=== PATIENT | male | born 1935 | race Caucasian/White ===

== ENCOUNTER → 2019-09-18 19:01 | Outpatient (ROUT) | payer MEDICARE, SELFPAY ==
[2019-09-18 19:12] LABS: BUN Creatinine Ratio 31.4 (6-22); Blood Urea Nitrogen 22 mg/dL (9-20); Calcium 9.6 mg/dL (8.4-10.2); Carbon Dioxide 27 mmol/L (22-32); Chloride 101 mmol/L (98-107); Estimated Glomerular Filt Rate > 60.0 mL/min (>60); Glucose 152 mg/dL (80-110); HEMOLYSIS 44 (0-50); Potassium 4.4 mmol/L (3.4-5.1); Sodium 137 mmol/L (137-145); Uric Acid 5.5 mg/dL (3.5-8.5)
== END ==
PROVIDERS: Family Provider Orthopaedic Surgery; PCP Orthopaedic Surgery; Visit Provider Internal Medicine
DX: M79.671 Pain in right foot (principal)
CPT/HCPCS: 80048; 84550

== ENCOUNTER 2021-08-07 09:31 | Emergency (ER) | payer MEDICARE, SELFPAY ==
[2021-08-07 09:47] VITALS: BP 168/88; PULSE 89; RESP 14; TEMP 36.3; O2SAT 99; BMI 33.3
--- NOTE | 2021-08-07 10:05 | ED.BACK ---
HPI - Back Pain/Injury General Chief Complaint: Back Pain/Injury Stated Complaint: Pain in left lower back Time Seen by Provider: 08/07/21 09:41 Source: patient Mode of arrival: Ambulatory Limitations: no limitations History of Present Illness HPI Narrative: Patient is an 86-year-old male who has had lower back surgeries in the past who is here for evaluation of left-sided lower back pain. He states that is been going on for the past couple days. He does take ibuprofen at home which helps the symptoms somewhat but then it returns. No urinary symptoms. No change in bowel habits. He does state that he is having some pain down his left leg. He does feel somewhat better when he leans over or rests on something. He does not remember specific time when the injury occurred. He has no skin rashes over the area. No fevers. Related Data Allergies Allergy/AdvReac Type Severity Reaction Status Date / Time No Known Drug Allergies Allergy Verified 08/07/21 09:51 Review of Systems Constitutional Constitutional: Reports system reviewed and no additional complaints, except as documented Gastrointestinal Gastrointestinal: Reports system reviewed and no additional complaints, except as documented, Denies change in bowel habits, Denies nausea and Denies vomiting Genitourinary Genitourinary: Reports system reviewed and no additional complaints, except as documented and Denies dysuria Musculoskeletal Musculoskeletal: Reports system reviewed and no additional complaints, except as documented Integumentary/Breasts Skin/Breast: Reports system reviewed and no additional complaints, except as documented Neurologic Neurologic: Reports system reviewed and no additional complaints, except as documented Hematologic/Lymphatic On Anticoagulants: No Patient History Medical History Cervical spinal stenosis History of prostate cancer Osteoarthritis Social History Smoking Status: Former smoker Smoking Status: Former smoker Substance Use Type: does not use Exam Initial Vital Signs Initial Vital Signs: Vital Signs Temperature 97.4 F L 08/07/21 09:47 Pulse Rate 89 08/07/21 09:47 Respiratory Rate 14 08/07/21 09:47 Blood Pressure 168/88 H 08/07/21 09:47 Pulse Oximetry 99 08/07/21 09:47 Const General: cooperative and comfortable HENMT Head: normal to inspection and normocephalic Resp Effort & Inspection: normal respiratory effort Auscultation: clear to auscultation bilaterally Cardio Rate: regular rate Rhythm: regular rhythm GI Inspection: normal to inspection Palpation: soft, No guarding and No tender Back/Spine/Pelvis Other: No midline lumbar spinal tenderness. He does not have any specific reproducible tenderness to palpation on his back but the location is over the posterior superior iliac spine. No tenderness over the SI joint. Skin General: no rashes or lesions noted Neuro General: patient alert, patient awake and moves all extremities Extrem General: capillary refill normal Psych Appearance: grossly normal and well kempt Course Vital Signs Vital signs: Vital Signs - 8 hr 08/07/ 09:47 Temperature 97.4 F L Pulse Rate 89 Respiratory Rate 14 Blood Pressure 168/88 H Pulse Oximetry 99 MDM - Back Pain/Injury MDM Narrative Medical decision making narrative: Patient is ambulatory. He has fairly localized tenderness over the location of the posterior superior iliac spine although it is not necessarily reproducible with palpation. Does report some tenderness along the anterior left thigh. No fevers. No urinary symptoms. No change in bowel habits. No specific trauma. No indication for radiologic studies. Given the location I do suspect musculoskeletal in origin. Patient will continue to take ibuprofen at home. We discussed return precautions. He expressed understanding. Discharge Plan Departure Patient Disposition: Home Clinical Impression: Acute low back pain Instructions: DI for Low Back Pain Activity Restrictions/Additional Instructions: I do recommend that you continue to take the ibuprofen at home as directed. Be sure that you are taking this with food has a can irritate your stomach. I would also recommend that you start taking a daily medicine called famotidine/Pepcid you can purchase this [id number]. This medicine will also help with decreasing the acidity of your stomach and help prevent and ulcers. Contact your primary doctor for a follow-up. Return to the emergency department for any new or worsening symptoms.
== END 2021-08-07 10:28 | disposition home or self-care (01) ==
PROVIDERS: Emergency Provider Emergency Medicine
DX: M54.50 Low back pain, unspecified (principal)
CPT/HCPCS: 99281

== ENCOUNTER → 2021-08-19 17:20 | Outpatient (CLI) | payer MEDICARE, SELFPAY ==
--- NOTE | 2021-08-19 17:22 | DI.MRI.S_ITS ---
PROCEDURE: MR LUMBAR SPINE WO CON INDICATIONS: LOW BACK PAIN TECHNIQUE: Noncontrast sagittal T1 spin echo and T2 fast echo, sagittal STIR, and T2 fast spin echo through the lumbar spine. In cases with scoliosis, additional coronal T2 fast spin echo may be performed. COMPARISON: None. FINDINGS: Image quality: Excellent. Alignment and Curvature: There is normal bony alignment. Bone Marrow: Degenerative endplate changes noted including Modic type 1 degenerative endplate changes at L5-S1. Spinal Cord: Conus medullaris terminates at the L1 level. Visualized cord demonstrates normal signal and size. Paraspinous Soft Tissues: No paravertebral masses. T12-L1: Normal appearance. L1-L2: Normal appearance. L2-L3: Normal appearance. L3-L4: Disc height is preserved. Circumferential disc bulge and hypertrophic facet joints combined result in mild central stenosis and effacement of both lateral recesses. There is moderate bilateral foraminal stenosis greater on the right. L4-L5: Disc space narrowing and circumferential disc bulge with hypertrophic facet joints present. There is evidence of prior left hemilaminectomy. There is persistent effacement of the left lateral recess. Mild central stenosis. Moderate right and severe left foraminal stenosis. L5-S1: Disc space narrowing with circumferential disc bulge and hypertrophic facet joints present. There has been a right hemilaminectomy previously. No central stenosis. Severe right and moderate left foraminal stenosis present. IMPRESSION: Multilevel degenerative disc disease and arthropathy in the lower cervical spine results in varying degrees of central and foraminal stenosis including severe right foraminal stenosis at L5-S1 and severe left foraminal stenosis at L4-5 Approved by: Placido Vang M.D. on 08/20/2021 at 8:50
== END ==
PROVIDERS: Referring Provider Orthopaedic Surgery Orthopaedic Surgery of the Spine; Visit Provider Orthopaedic Surgery Orthopaedic Surgery of the Spine
DX: M51.36 Other intervertebral disc degeneration, lumbar region (principal); M51.37 Other intervertebral disc degeneration, lumbosacral region; M47.816 Spondylosis without myelopathy or radiculopathy, lumbar region; M47.817 Spondylosis without myelopathy or radiculopathy, lumbosacral region; M48.061 Spinal stenosis, lumbar region without neurogenic claudication; M48.07 Spinal stenosis, lumbosacral region; M54.50 Low back pain, unspecified
CPT/HCPCS: 72148

== ENCOUNTER → 2021-10-14 11:10 | Outpatient (CLI) | payer MEDICARE, SELFPAY ==
[2021-10-14 12:08] LABS: COVID19 -Nasal RAPID Negative (Negative)
== END ==
PROVIDERS: PCP Physician Assistant Medical; Referring Provider Orthopaedic Surgery Orthopaedic Surgery of the Spine; Visit Provider Orthopaedic Surgery Orthopaedic Surgery of the Spine
DX: Z20.822 Contact with and (suspected) exposure to COVID-19 (principal)
CPT/HCPCS: 87635; C9803

== ENCOUNTER 2021-10-18 13:00 | Observation (INO) | payer MEDICARE, SELFPAY ==
[2021-10-10 09:22] VITALS: BMI 34.2
[2021-10-17] VITALS (22 sets, daily range): BP systolic 120–185; BP diastolic 42–114; PULSE 63–85; RESP 13–18; TEMP 36.2–37; O2SAT 93–99; BMI 34.2
[2021-10-17] MEDS: LACTATED RINGERS 1,000 ML 42 ML IV (12:33)
--- NOTE | 2021-10-17 13:28 | PM.PREOP ---
Pre-operative Note COVID-19 COVID-19 status: Negative Result date/Date tested (Pos, Neg/Pending): 10/16/21 Criteria for continued procedure: Expected advancement of disease process, Possibility delay results in more complex future surgery or treatment, Increased loss of function, Continuing or worsening of significant or severe pain and Deterioration of the patient's condition or overall health Interval Note History & Physical reviewed/Exam performed by Physician: Yes Changes to H&P: No
[2021-10-17] MEDS: CEFAZOLIN 2 GM/100 ML PREMIX 100 ML IV ×2 (13:49→22:06)
--- NOTE | 2021-10-17 14:21 | SUR.OPER ---
Prone on spine table, head in foam head support, padded chest and pelvic supports, gel pad at knees, lower legs supported by pillows; nipples, genitalia and toes free of pressure, arms secured on foam padded arm boards at <90 degrees abduction. Tape over blanket at thigh secured to table.
[2021-10-17] MEDS: BUPIVACAINE 0.25% (PF) 30 ML, EPINEPHrine 0.3 MG INJ (14:33)
[2021-10-17] MEDS: BUPIVACAINE LIPOSOME 266 MG/20 ML VIAL INJ (14:34)
[2021-10-17] MEDS: ACETAMINOPHEN IV 1,000 MG/100 ML VIAL 400 MG IV (14:49)
--- NOTE | 2021-10-17 16:03 | DI.RAD.S_ITS ---
PROCEDURE: XR LUMBAR SPINE 2-3V INDICATIONS: L4-5 TLIF TECHNIQUE: 2 intraoperative fluoroscopic views of the lumbar spine were acquired. COMPARISON: None. FINDINGS: Intraoperative fluoroscopic images of lower lumbar spine shows posterior fusion at L4-5 level with intervertebral spacer placement. IMPRESSION: Fluoro guidance was provided intraoperatively for posterior fusion at L4-5 level. Dictated by: Talib Alexandre M.D. on 10/17/2021 at 16:32 Approved by: Talib Alexandre M.D. on 10/17/2021 at 16:37
--- NOTE | 2021-10-17 16:15 | PM.OP.1 ---
Operative Date/Time/Diagnoses Date of procedure: 10/17/21 Time of procedure: 13:50 Pre-op diagnosis: 1. 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 Lumbar spondylosis with radiculopathy Post-op diagnosis: same Procedure & Clinicians Procedure: 1. L4-5 Postero-lateral and posterior interbody fusion 2. L4-5 interbody cage placement. 3. L4-5 decompressive laminectomy with bilateral facetecomies 4. L4-5 Posterior non-segmental instrumentation 5. [place] of bone marrow from iliac crest 6. Utilization of microsurgical technique and operating microscope Same procedure as scheduled: Yes Indications: Patient has been having chronic back pain and worsening lumbar radiculopathy. Patient failed multiple conservative management with worsening pain weakness and numbness in her lower extremity. Patient has been having difficulty performing activity of daily living. After discussing risks benefits of treatment options, patient elected proceed with surgery. Surgeon: Riri Anthony Organisation And Methods Analyst: Chantal Crook Click Yes if Unassisted: No Anesthesia Type: General Operative Notes Closure Type: primary Specimen(s): none sent Prosthetic devices, grafts, tissues, transplants, or devices: Globus revolve screws, Rise cage Estimated Blood Loss (mL): 50 Blood products transfused: none Procedure in detail: Patient was seen in the preoperative area. Risks and benefits of the surgery was discussed with the patient. Informed consent was obtained from the patient and placed in the chart. Surgical site was marked. Patient was taken to the operative room. General anesthesia was administered. Prophylactic antibiotic was given to the patient less than 30 min before the incision was made. Patient was placed into a prone position on the Brad table. Patient's back was then prepped and draped in the sterile fashion. Time-out was performed at this time. Using AP and lateral C-arm imaging the interval between L4-5 was identified and marked on patient's back. A 2 inch incision 2 in from midline was made on the right side first. The fascia was incised in line with skin incision. Globus MARS retractors was placed inside the incision and docked onto the L4 lamina. Using microsurgical technique and operating microscope, a L4 laminectomy and L4-5 facetectomy was performed using a Kerrison rongeur. The disc space at L4-5 was identified. And a total diskectomy was performed at L4-5 level. The endplates were decorticated using a rasp and shaver. The total diskectomy and decortication was performed at L4-5 level in order to to accomplish a L4-5 fusion. The local bone from the laminectomy and facetectomy was saved for local bone grafting. After the total diskectomy and decortication was completed, Trifecta bone graft material was combined with local bone that was harvested earlier. At this time, a separate skin is incision was made over the iliac crest. A Jamshidi needle was inserted into the iliac crest through a separate skin incision. 5 cc of bone marrow aspiration was obtained through the separate skin incision using a Jamshidi needle from the iliac crest. The bone marrow aspiration was combined with local bone and the Trifecta bone grafting material. The bone grafting material was placed into the L4-5 interbody space along with a expandable cage. The cage was expanded to its maximum height using the torque limiting screwdriver. At this time a mirror image incision was made on the left side. The fascia was incised in line with the skin incision. Globus MARS retractor was inserted and docked onto the L4-5 posterolateral gutter. Using the power drill, posterior-lateral decortication was performed at L4-5 level until bleeding cortical bone was identified. The remaining bone grafting material was placed into the L4-5 posterior lateral gutter he order to accomplish posterolateral fusion at the L4-5 level. Using the double C-arm technique, pedicle screws were placed into the L4-5 pedicles bilaterally. This was done by placing the Jamshidi needle into the pedicles, then placing the guidewires over the Jamshidi needle, and finally placing the cannulated screws over the guidewires bilaterally. After the pedicle screws were placed, 2 titanium rods was locked into the heads of the pedicle screws using locking caps and torque limiting screwdriver. After all the hardware was placed, and confirmed with AP and lateral C-arm imaging, the wound was then irrigated with sterile normal saline and packed with Ray-Zeferino gauze for 3 min to accomplish hemostasis. After the gauze was removed the deep fascia was closed with #1 Vicryl suture. The subcutaneous layer was closed with 2-0 Vicryl. The skin was closed with skin scotty. Patient tolerated the procedure well. There were no complications. Complications: none Post-operative Condition: stable Disposition: PACU Plan for aftercare: Admit to inpatient hospital
[2021-10-17] MEDS: MEPERIDINE 50 MG/ML INJ 12.5 MG IV (16:40)
[2021-10-17] MEDS: fentaNYL 100 MCG/2 ML INJ IV ×2 (16:51→16:56)
--- NOTE | 2021-10-17 17:15 | SUR.PHASEI ---
Addendum entered by Leonora Cuellar R.N. 10/17/21 18:38: 1820: Report given to receiving RN using SBAR with time allowed for questions. Pt A&Ox4, dressing C/D/I, denies distress, VSS. Pt transported to room by this RN bedside handoff to receiving RN. Left pt with primary RN in stable condition. Addendum entered by Leonora Cuellar R.N. 10/17/21 18:05: 1805: Pt A&Ox4, reports pain as tolerable, VSS, CMS (+) bLE, and denies any distress and ready to transfer to room. Attempt to call report to receiving RN, busy at this time, will return call when available. LOW Lea x [phone] Addendum entered by Leonora Cuellar R.N. 10/17/21 17:20: Updated son. Original Note: 1700: Handoff to LOW Wood for rest break. 1715: Returned from break.
[2021-10-17] MEDS: LABETALOL 20 MG/4 ML SYRINGE 10 MG IV (17:31)
[2021-10-17] MEDS: OXYCODONE IR 5 MG TABLET PO ×3 (17:43→23:38)
[2021-10-17] MEDS: SODIUM CHLORIDE 0.9% 1,000 ML 100 ML IV (19:30)
[2021-10-17] MEDS: ATORVASTATIN 20 MG TABLET 40 MG PO (20:28)
[2021-10-17] MEDS: DOCUSATE 100 MG CAPSULE PO (20:28)
[2021-10-17] MEDS: SENNOSIDES 8.6 MG TABLET 17.2 MG PO (20:29)
--- NOTE | 2021-10-17 21:18 | PC.NURSE ---
Addendum entered by Angelica Hughes R.N. 10/18/21 01:24: correction of previous note: Patient attempts to turn himself in bed but is not good at remembering to log roll and not twist so instructed to call for assistance when wanting to reposition Original Note: Patient is alert and oriented. Slightly T[place]ALIP. Breath sounds CTA with RA sat of 93%; on continuous oximetry. HRR. Denies nausea and ate sandwiches and japanese fries. BT present and states he has passed a little flatus. Voided prior to arrival on floor; denies dysuria, frequency or urgency. Is able to move himself in bed. Gait not assessed at this time as only back from PACU at 1830. Dressing to back intact with small area of shadow drainage noted and outlined. Noted to have bruised area to right of dressing; outlined. CMS is intact bilaterally but does have chronic tingling/numbness in right hand which is unchanged. Bilateral foot SCD's applied. Complained of 2-3/10 pain and was medicated with oxycodone. Fall risk score is high and bed alarm is activated.
[2021-10-17] MEDS: hydrOXYzine pamoate 25 MG CAPSULE PO (22:09)
[2021-10-18] VITALS (8 sets, daily range): BP systolic 109–129; BP diastolic 35–68; PULSE 56–72; RESP 17–18; TEMP 36.6–37.4; O2SAT 93–97
[2021-10-18] MEDS: HYDROMORPHONE 0.5 MG INJ IV ×3 (01:07→07:41)
[2021-10-18] MEDS: CEFAZOLIN 2 GM/100 ML PREMIX 100 ML IV (05:35)
[2021-10-18] MEDS: OXYCODONE IR 5 MG TABLET PO ×5 (06:25→21:36)
[2021-10-18] MEDS: SODIUM CHLORIDE 0.9% 1,000 ML 100 ML IV ×2 (06:28→20:50)
--- NOTE | 2021-10-18 06:54 | P.PN_ITS ---
Subjective Subjective Date Patient Seen: 10/18/21 Time Patient Seen: 06:54 Interval history: Lying in bed on his left side. C/o back pain, denies leg pain; 'It's already feeling better than before surgery!' Has not been OOB. No trouble urinating or eating. He will have help at home from his son, but his son will be out of town from 10/21 through 10/24, so depending on progress w/ PT/OT, pt may require SNF for a brief period of time. Exam Vital Signs (past 8 hours): - 10/18/21 00:00 10/18/21 00:00 10/18/21 04:00 Temperature 98.1 F 98.2 F Pulse Rate 63 63 Respiratory Rate 18 18 Blood Pressure 120/52 L 129/53 L Pulse Oximetry 96 97 Oxygen Flow Rate 0 Oxygen Delivery Method Room Air Oxygen Flow Rate 0 Narrative Exam Narrative: 5/5 strength in hip flexors, quadriceps, hamstrings, DF, PF, EHL bilaterally. Sensation to light touch intact in BLE. Calves soft, compressible, nontender and without palpable cords or masses. Incisional dressing placed intraoperativ barby saturated with blood and changed at bedside; no active bleeding appreciated. There is hematoma formation lateral to the right incision. [facility] Medical History Cervical spinal stenosis COPD (chronic obstructive pulmonary disease) Hearing impaired History of prostate cancer HLD (hyperlipidemia) HTN (hypertension) Myocardial infarction Osteoarthritis Pre-diabetes Prostate cancer Sciatica Surgical History (Updated 10/18/21 @ 06:59 by Chantal Crook PA-C) H/O vasectomy History of right cataract extraction Hx of cervical spine surgery Hx of cholecystectomy Hx of heart artery stent Hx of laminectomy Hx of laminectomy Hx of prostatectomy Hx of tonsillectomy S/P cervical spinal fusion Social History household members: none Smoking Status: Former smoker alcohol intake: former Assessment & Plan Post-op Assessment and plan (1) S/P lumbar fusion: Assessment and Plan narrative: PT/OT today. Disposition based on their assessment over the next 1-2 days. If pt is not able to care for himself independently at time of discharge, he will need HH or SNF at least until 10/24 due to lack of help at home. Postoperative Procedures: Procedures Operation Date: 10/17/21 13:45 Actual Procedure Side Surgeon p L4-5 TLIF Riri Anthony MD Postoperative day: 1 Quality VTE Deep Vein Thrombosis/Pulmonary Embolism Present on Admission: No
[2021-10-18] MEDS: MULTIVITAMIN 1 TABLET 1 TAB PO (09:05)
[2021-10-18] MEDS: DOCUSATE 100 MG CAPSULE PO ×2 (09:05→20:51)
--- NOTE | 2021-10-18 09:55 | PT.IIE ---
Current Diagnoses Foot drop, left foot (10/17/21) Spinal stenosis, lumbar region without neurogenic claudication (10/17/21) Postlaminectomy syndrome, not elsewhere classified (10/17/21) Arthrodesis status (10/17/21) Surgery Performed Operation Date: 10/17/21 13:45 Actual Procedures p L4-5 TLIF - Riri Anthony MD Surgical History (Last Reviewed 10/17/21 @ 11:58 by Jil Melchor, RN) H/O vasectomy History of right cataract extraction Hx of cervical spine surgery Hx of cholecystectomy Hx of heart artery stent Hx of laminectomy Hx of laminectomy Hx of prostatectomy Hx of tonsillectomy S/P cervical spinal fusion Medical History (Last Reviewed 10/17/21 @ 11:58 by Jil Melchor, RN) Cervical spinal stenosis COPD (chronic obstructive pulmonary disease) Hearing impaired History of prostate cancer HLD (hyperlipidemia) HTN (hypertension) Myocardial infarction Osteoarthritis Pre-diabetes Prostate cancer Sciatica Physical Therapy Inpatient Evaluation/Re-Eval M1 PT/OT-IP Prior Functional Status Start: 10/18/21 12:25 Freq: NEEDED Status: Active Protocol: Document 10/18/21 09:55 AB (Rec: 10/18/21 12:44 AB [id number]) Medical Review Prior Functional Status Medical History Reviewed Yes Communication able to make needs known; with memory issues Mobility and Gait pt stated taht he is independent with all mobilities without AD Social History Household Members none Living Arrangements House Number of Floors (Floors) Two Floors Number of Stairs To Enter/Railing? pt stays on main level of the house no steps to enter Home Environment Standard Height Toilet,Walk in Shower Home Equipment Front Wheel Walker,Straight Cane M2 PT-IP Current Condition Start: 10/18/21 12:25 Freq: NEEDED Status: Active Protocol: Document 10/18/21 09:55 AB (Rec: 10/18/21 12:44 AB [id number]) Physical Therapy Current Condition Current Condition Evaluation Date 10/18/21 Treatment Diagnosis s/p L4-5 TLIF; difficulty in walking Onset Date 10/17/21 M3 PT-IP Subjective Start: 10/18/21 12:25 Freq: NEEDED Status: Active Protocol: Document 10/18/21 09:55 AB (Rec: 10/18/21 12:44 AB [id number]) Subjective Physical Therapy Visit Type Type Initial Evaluation Visit Start Time 09:55 Visit Stop Time 10:31 Total Visit Minutes 36 Number of DOWEL SANDER OPERATOR Visits 0 Physical Therapy Visit Comments Patient Comments agreeable to do PT Therapy Pain Assessment Pain When Pain Assessed At Rest Pain Present Pain Present Pain Reported Location Back Intensity 5 Pain Management Techniques Distraction,Modification of Treatment,Re-positioning, Timing of Activity with Medications M4 PT-IP Mobility and Gait Start: 10/18/21 12:25 Freq: NEEDED Status: Active Protocol: Document 10/18/21 09:55 AB (Rec: 10/18/21 12:44 [id number]) PT-Bed Mobility Assessment Rolling Type of Rolling Log Rolling Level of Assist Moderate Assistance Supine to Sit Supine to Sit Moderate Assistance Sit to Supine Sit to Supine Moderate Assistance PT-Transfer Assessment Sit to and From Stand Sit to and from Stand Moderate Assistance,Maximum Assistance,1 Person Assistance ,Use of Upper Extremities Equipment Transfer Assistive Device Gait Belt,Front Wheeled Walker Orthotic/Prosthetic Devices or Brace: No Transfers Transfer Destination Toilet Transfer Technique ambulated Transfer Ability Level of Assist Moderate Assistance,Maximum Assistance,1 Person Assistance ,Use of Upper Extremities Comments Mobility Comments educated pt on back precautions and safety. pt can be impulsive. pt requires cues to recall back precautions. completed supine to sit log roll mod A and max cues. able to sit on EOB SBA. completed sit to stand mod to max a and max cues. cues for safety and techniques provided. pt requested to use the toilet and ambulated to the toilet using FWW ~ 15 ft mod to max A and max cued. presents with unsteady narrow RICARDO with increase B knee flexion during standing R>L and cues for quads activation and steadiness. pt tends to have walker too far forward. completed stand to sit using grab bar to the toilet mod to max A for controlled descent. completed sit to stand mod to max A using grab bar. required assistance with hygiene care. ambulated to the chair using fWW mod to max A and max cues. encouraged pt to sit up on the chair but pt refused. completed sit to stand from the chair mod to max A and max cues and ambulated to EOB ~ 12 ft mod to max A. completed sit to supine mod A and max cues. positioned pt in bed. call light and table placed within reach. Gait Assessment Gait Gait Assistance Required: Moderate Assistance,Maximum Assistance Distance (Feet) 15 Able to Maintain Weight Bearing Status Yes During Gait Assistive Devices Assistive Device Gait Belt,Front Wheeled Walker Orthotic/Prosthetic Devices or Brace: No Gait Deviations General Gait Pattern Antalgic,Decreased Stride Length,Decreased Feet Clearance,Step-to Gait Factors Limiting Gait Function Factors Limiting Gait Function Decreased Activity Tolerance, Decreased Strength,Difficulty Following Directions,Limited Range of Motion,Pain,Poor Balance,Poor Safety Awareness PT-Balance Assessment Sitting Balance and Reactions Static Sitting Balance Ability Good Dynamic Sitting Balance Ability Good Standing Balance and Reactions Static Standing Balance Ability Fair Dynamic Standing Balance Ability Poor Device Used FWW M5 PT-IP Objective Assessments Start: 10/18/21 12:25 Freq: NEEDED Status: Active Protocol: Document 10/18/21 09:55 AB (Rec: 10/18/21 12:44 AB [id number]) Orientation Orientation/Cognition Level of Alertness Alert Orientation Name,Place,Situation Language Function Ability Hard of Hearing Safety Awareness Decreased Safety Awareness Memory Description Short Term Impaired,Senior Living Impaired Comments with memory issues Gross Range of Motion Lower Extremity ROM Assessment Within Functional Limits Strength Lower Extremity Strength Assessment Bilaterally Impaired Comments Strength Comments LLE: 4-/5 RLE: 3+/5 Coordination Assessment Gross Coordination Gross Coordination WNL Muscle Tone Muscle Tone WNL Yes M6 PT-IP Treatment Start: 10/18/21 12:25 Freq: NEEDED Status: Active Protocol: Document 10/18/21 09:55 AB (Rec: 10/18/21 12:44 AB [id number]) Physical Therapy Treatment Education Education Provided Precautions,Weight Bearing Status,Post-Op Packet,Safety M7 PT-IP Assessment and Plan Start: 10/18/21 12:25 Freq: NEEDED Status: Active Protocol: Document 10/18/21 09:55 AB (Rec: 10/18/21 12:44 AB [id number]) PT Summary Assessment and Plan Potential Rehabilitation Potential Fair Status of Condition at Evaluation Evolving Summary Impairments Pain,ROM,Strength,Balance, Coordination,Sensation,Tone, Cognition,Bed Mobility, Transfers,Gait,Activity Tolerance Assessment Summary pt requiring mod to max A with mobility using FWW and has decrease activity tolerance and decrease safety awareness needing max A for all tasks. pt is impulsive and needs cues for back precautions and safety. pt will not have any assistance at home. pt will require SNF rehab at this time . will continue to assess progress. Goals Bed Mobility Goal Standby Assistance Transfer Goal Standby Assistance,Front Wheeled Walker Gait Goal Standby Assistance,Front Wheel Walker Gait Distance 150 Days to Meet Goals 10 Frequency of Treatment Frequency Of Treatment Twice a Day Treatment Plan Physical Therapy Treatment Plan Bed Mobility Training,Transfer Training,Gait Training, Therapeutic Exercise,Balance Retraining,Post Op Education, Discharge Planning,Hot or Cold Pack,Neuromuscular Re-ed, Coordination Retraining,Manual Therapy Precautions Lumbar Precautions Log Roll,No Twisting,Limit Bending,Lifting Restriction of 10 lbs,Gait Belt above Incisional Area Recommendations To Nursing Amount of Assist Needed 1 Person Assist Discharge Recommendations PT Discharge Recommendations SNF Rehab Transportation Needs at Discharge Wheelchair/Cabulance
[2021-10-18] MEDS: SODIUM CHLORIDE 0.9% FLUSH 10 ML IV ×2 (10:56→20:52)
[2021-10-18] MEDS: ACETAMINOPHEN 325 MG TABLET 650 MG PO ×2 (11:29→18:25)
--- NOTE | 2021-10-18 12:31 | CM.DANOTE ---
Addendum entered by PADMA Turner 10/18/21 15:05: ADD: Return call from [facility] that they can accept and initiated auth and received SNF auth from [facility] quickly but since they are not officially contracted with [facility] then shows a copay of $225 a day. SW called [facility] who is reviewing but currently no beds available for a few days and likely could not accept in timely manner. [facility] no beds until 10/22 at the earliest. [facility] is full and no beds available for this week. SW called [facility] and they are contracted and willing to review and BRENDAN Graham kindly faxed referral. ALIDA met bedside with pt and updated on above and pt is considering paying the co-pay to stay local in [place] vs [facility] on [address] if they accept pt. SW updated Claudia at [facility] and if [facility] cannot accept then they may be able to overturn the co-pay requirement without local accepting contracted SNF. BF Original Note: Patient is an 86 yo male who was admitted on 10/17/21 for planned TLIF. Pt has [facility] MCR for insurance and his PCP is Randa Trivedi. EMR was reviewed. Per Ortho, pt with hx of 2 cervical surgeries and 3 lumbar surgeries and to work with PT/OT today to determine d/c needs. Per PT, pt limited in his ability to complete bed mobility and ambulation and may require SNF pending progress and pt is agreeable to SNF if needed. OT ordered and pending. SW met bedside with pt and explained role and pt confirms he lives in [place] alone but has local supportive son who plans to assist at d/c but only for a few days as son has plans to be out of town for a long weekend and pt cannot identify any other friend or local support that he would reach out to for assist if needed. Pt confirms he has had multiple surgeries in the past and has been able to d/c home without need for HH or SNF. Pt confirms he feels he likely needs more assist after this surgery and SW explained the need to get [employer] to auth SNF for a planned surgery and this could be a barrier and discussed HH and SNF. SW provided SNF Choice list and pt agreeable with referral to any [employer] contracted SNF to see if he can be accepted and then if insurance will auth or pt will have to d/c home with son and HH. BRENDAN Graham kindly made SNF referral to [facility] and [facility]. PASRR completed in anticipation of SNF. SW printed off pt's COVID vax status off [facility] and may need COVID booster pending SNF facility requirements and ability to quarantine. Plan: SW to follow for SNF reviews and to determine if pt's insurance will auth SNF vs return home with son assist for a few days and HH. PADMA Turner Discharge Planning/Care Management CM Discharge Assessment Start: 10/18/21 12:28 Freq: Status: Active Protocol: Document 10/18/21 12:28 BF (Rec: 10/18/21 12:30 [id number]) Discharge Planning Assessment Assigned Striper Machine PADMA Lowery DPOA/Assigned Designee Name dharmesh Dorsey Contact Information [phone] Advance Directives? No Advance Directives on File No History Provided By Patient,Medical Record Has Patient been admitted in last 30 No days? Prior Living Arrangements House Household Members none Type of transporation used prior to Drives own vehicle admit Independent with ADL's Yes Is patient alert and oriented? Yes Needs Assistance With Home Chores / Shopping Caregiver for Another No Community Services used prior to Physical Therapy admission: DME Already Rented / Owned Bath Bench,FWW / Walker Patient/Family Preference Nursing Home Facility Barriers to [facility]charge Yes Comment [facility] for [facility] TL[facility] Discharge Plan Nursing Home Facility Transportation Arrangement facility van if SNF vs son if home Referrals Initiated Nursing Home If patient plan is SNF: Has PASSR been Yes completed? Medicare Choice List Provided Yes SNF/HH Preference Any [employer] contracted SNF that can accept Has Agency SNF been contacted Yes Whiteboard Updated in Patient Room with Yes name and ext. # of Striper Machine Review Status In Process Please Provide Date Initial DC 10/18/21 Assessment Was Performed Next Review Type Continued Stay Review Pre-Anesthesia Assessment Start: 10/10/21 09:22 Freq: Status: Complete Protocol: Document 10/10/21 09:22 CAB (Rec: 10/10/21 10:49 CAB [id number]) Pre-Anesthesia Assessment Patient Information Reviewed Via Phone Assessment Assessment Completed With Patient Diagnostic Results BMP/CMP,CBC,EKG Comment Outside labs/ECG scanned, COVID screen @ 10/14/21 Primary Care Provider Charan Seen Specialist in Last 12 Months Yes Specialist Seen Orthopedist Primary Language Bengali Drop Wire Aliner Required No Height 177.8 cm Weight 108.409 kg Body Mass Index (BMI) 34.2 Hearing Ability Hard of Hearing Visual Assist Glasses Dentition Type Teeth, Natural Present,Full- Upper Barriers to Learning Memory Hx Anesthesia Reactions No Hx Family Anesthesia Reaction No Hx Malignant Hyperthermia No Hx Blood Transfusions No Anesthesia Review Requested No alcohol intake former Alcohol Intake Frequency Other: Quit 15 years ago Smoking Status Former smoker how long ago did patient quit smoking Quit approx 12 years ago Substance Use Type does not use Musculoskeletal Symptoms Abnormal Gait,Back Pain, Difficulty Walking,Numbness, Radiating Pain into Limb, Tingling History of Falling (Recent or History of No ) Patient is completely paralyzed or No completely immobile Mental Status Oriented to own ability Is patient on oxygen? No Does patient have PEREYRA/SOB Yes: not really bad hx COPD Hx Sleep Apnea No Currently Taking a Beta [place] No Can You Climb a Flight of Stairs Without No SOB Hx SOB Yes: not really bad hx COPD Anti-Coagulant Therapy Yes: ASA 81mg-advised pt to check w/PCP on whether to hold or continue Has a Sweat Box Attendant No: No longer follows with cardiology Cardiac Testing No Hx Pacemaker/ICD No Pacemaker Rep Required? No Diet Type At Home Regular dysphagia No Gastrointestinal Symptoms Constipation Genitourinary Symptoms Dribbling Bladder Pattern Urgency Urinary Catheter Present No Hx Urinary Self Catheterization No HgbA1C 6.3 Date 09/03/21 Hx Drug Resistant Organism No Presence of External or Internal Medical Yes: Cardiac stent, eye IOL, Devices neck fusion Received a COVID vaccine? Yes Received all doses? Yes Marital Status Single Lives With none Prior Living Arrangements House Number of Floors (Floors) Two Floors Support System Child/Children Does the Patient Have Assistance After Yes: He states he can call his Surgery son for assistance Patient Discharge Plan Description Return Home Comment Pt not advised on length of stay per surgeon Feels Safe in Current Environment Yes Been Physically Hurt or Threatened By a No Person in Current Environment Do you have thoughts of harming yourself None or others? Are you currently considering suicide? No Do you have a plan to hurt yourself or No Plan others? Do You Have Any Spiritual Beliefs That No May Affect Your HC Choices? Do You Have Any Cultural Practices That No May Affect Your HC Choices? Comment Richard Who Can We Speak to About Patient's Care Family, friends Identifying Code for Release of Patient Declines to issue Information Health Care Proxy/Next of Kin Willian (son) Health Care Proxy Emergency Contact Name Willian (son) Emergency Contact Advance Directives? No Power of Roll Forming Machine Operator No PAC Instructions Durable medical equipment, Medications to take/avoid, Nasal antibiotic,No ETOH/ petroleum product on skin DOS, NPO,Post-op transportation,Pre -surgical wash,Sturdy shoes/ comfortable clothes,Do not bring valuables and remove jewelry
--- NOTE | 2021-10-18 12:39 | OT.IP.EVAL ---
Current Diagnoses Foot drop, left foot (10/17/21) Spinal stenosis, lumbar region without neurogenic claudication (10/17/21) Postlaminectomy syndrome, not elsewhere classified (10/17/21) Arthrodesis status (10/17/21) Surgery Performed Operation Date: 10/17/21 13:45 Actual Procedures p L4-5 TLIF - Riri Anthony MD Past Medical History (Last Reviewed 10/17/21 @ 11:58 by Jil Melchor, RN) Cervical spinal stenosis COPD (chronic obstructive pulmonary disease) Hearing impaired History of prostate cancer HLD (hyperlipidemia) HTN (hypertension) Myocardial infarction Osteoarthritis Pre-diabetes Prostate cancer Sciatica Surgical History (Last Reviewed 10/17/21 @ 11:58 by Jil Melchor, RN) H/O vasectomy History of right cataract extraction Hx of cervical spine surgery Hx of cholecystectomy Hx of heart artery stent Hx of laminectomy Hx of laminectomy Hx of prostatectomy Hx of tonsillectomy S/P cervical spinal fusion Occupational Therapy Inpatient Evaluation/Re-Eval M1 PT/OT-IP Prior Functional Status Start: 10/18/21 12:25 Freq: NEEDED Status: Active Protocol: Document 10/18/21 12:45 [facility] (Rec: 10/18/21 13:07 [facility] [id number]) Medical Review Prior Functional Status Medical History Reviewed Yes Communication able to make needs known; with memory issues Mobility and Gait pt stated that he is independent with all mobilities without AD Pt states could only walk one block and then the pain would limit him from moving more. Activities of Daily Living and IADL's Pt states able to do his ADL's and IADL needs with no issues . Social History Household Members none Living Arrangements House Number of Floors (Floors) Two Floors Number of Stairs To Enter/Railing? no step to enter Home Environment Standard Height Toilet,Walk in Shower Home Equipment Front Wheel Walker,Straight Cane Additional Social History Comment Pt has a counter on the right he uses to help stand up. Pt lives in the bottom floor on his house and rents out the top floor to a couple with 3 young kids. M2 OT-IP Current Condition Start: 10/18/21 12:45 Freq: Status: Active Protocol: Document 10/18/21 12:45 [facility] (Rec: 10/18/21 13:07 [facility] [id number]) Occupational Therapy Current Condition Current Condition Evaluation Date 10/18/21 Treatment Diagnosis S/p L4-5 TLIF Diagnosis Onset Date 10/17/21 Post Operative Precautions Lumbar Precautions Log Roll,No Twisting,Limit Bending,Lifting Restriction of 10 lbs,Gait Belt above Incisional Area M3 OT- IP Subjective and Pain Start: 10/18/21 12:45 Freq: Status: Active Protocol: Document 10/18/21 12:45 [facility] (Rec: 10/18/21 13:07 [facility] [id number]) OT- Subjective Occupational Therapy Visit Type Type Initial Evaluation Visit Start Time 11:53 Visit Stop Time 12:39 Total Visit Minutes 46 Occupational Therapy Visit Comments Patient Comments Pt agreed to work with OT. Noted right hand swollen and warm, nursing notified. OT Pain Assessment Pain When Pain Assessed At Rest Pain Present Pain Present Denied Pain M4 OT- IP ADL's Start: 10/18/21 12:45 Freq: Status: Active Protocol: Document 10/18/21 12:45 [facility] (Rec: 10/18/21 13:07 [facility] [id number]) OT SGJ-[id number] General Evaluation Self-Feeding Ability Independent Areas Needing Assistance Opening Containers Comments OT Self-Feeding Comments Pt encouraged to sit upright more in bed to eat, pt refuses . Therefore able to place his soup in a cup so pt better able to drink his soup versus use of spoon. OT ADL-Grooming General Evaluation Grooming Ability Standby Assistance Areas Needing Assistance Retrieving/Set-up of Grooming Items Comments OT Grooming Comments Set-up of wash cloth so able to wash his face. OT ADL-Oral Care Comments Oral Care Comments Not performed. Pt able to put his dentures in his mouth. OT ADL-Dressing General Eval Lower Body Dressing Ability Maximum Assistance Areas Needing Assistance Socks Comments OT Dressing Comments Able to show pt LB dressing equipment for LB dressing needs and able to practice equipment. OT ADL-Toileting General Evaluation Toileting Ability Standby Assistance Comments OT Toileting Comments Set-up assist and pt able to use the urinal in bed. Pt not able to reach back appropriately to wipe at this time during trial of simulation and suggested to pt on getting a toilet paper aid or bidet, otherwise pt may need someone to assist with his hygiene needs at home. OT ADL-Bathing Comments OT Bathing Comments Pt able to sponge off his chest and face at this time. Pt agreed to try to shower tomorrow. M5 OT- IP IADL's Start: 10/18/21 12:45 Freq: Status: Active Protocol: Document 10/18/21 12:45 [facility] (Rec: 10/18/21 13:07 [facility] [id number]) OT-Instrumental Activities of Daily Living Home Safety Awareness Awareness of Need for Assistance at Home Good Awareness Meal Preparation Meal Preparation Comments At this time pt would need assist. Fleet Service Manager Fleet Service Manager Comments At this time pt would need assist. M6 OT- IP Functional Cognition Start: 10/18/21 12:45 Freq: Status: Active Protocol: Document 10/18/21 12:45 [facility] (Rec: 10/18/21 13:07 [facility] [id number]) Cognitive Factors Limiting Selfcare Function Cognitive Ability Level of Alertness Alert Patient Orientation Name,Place,Situation Attention Span Ability Capable of Focused Attention, Capable of Sustained Attention Ability to Follow Commands Able to Follow One Step Commands with Increased Time, Able to Follow One Step Commands with Repetition Safety Awareness Decreased Recall of Precautions,Decreased Ability to Apply Precautions Cognitive Comments Cognitive Assessment Comments Pt needing educations for back precautions and log rolling. Pt needing simple concrete steps to follow at this time. OT- Vision and Hearing OT- Vision Assessment Visual Acuity Glasses All The Time Visual Attentiveness WFL Occular Pursuits WFL M7 OT- IP Mobility and Balance Start: 10/18/21 12:45 Freq: Status: Active Protocol: Document 10/18/21 12:45 [facility] (Rec: 10/18/21 13:07 [facility] [id number]) OT- Bed Mobility Assessment Supine to Sit Supine to Sit Assist Moderate Assistance Sit to Supine Sit to Supine Assist Moderate Assistance OT-Transfer Assessment Sit to and From Stand Sit to and from Stand Minimal Assistance Technique Transfer Destination Bed Devices Transfer Assistive Devices Gait Belt,Front Wheeled Walker Comments Mobility Comments MODA to help get pt's trunk upright/down and legs out and into the bed. RAQUEL to stand to FWW. Pt able to take a few step side to side and a little unsteady on his feet and just wanting to be back in the bed for his lunch. OT- Balance Assessment Sitting Balance and Reactions Static Sitting Balance Ability Good Dynamic Sitting Balance Ability Fair Standing Balance and Reactions Static Standing Balance Ability Fair M8 OT- IP Objective Assessments Start: 10/18/21 12:45 Freq: Status: Active Protocol: Document 10/18/21 12:45 [facility] (Rec: 10/18/21 13:07 [facility] [id number]) OT-Muscle Tone Assessment Muscle Tone WNL Yes M9 OT- IP Assessment and Plan Start: 10/18/21 12:45 Freq: Status: Active Protocol: Document 10/18/21 12:45 [facility] (Rec: 10/18/21 13:07 [facility] [id number]) OT Summary Assessment and Plan Potential Rehabilitation Potential Good Analytic Complexity at Evaluation Low Summary OT Impairments Pain,Balance,Functional Mobility,Dressing,Toileting, Bathing,Toilet Transfers, Shower Transfers,Activity Tolerance Progress Towards Goals Slow Progress due to Pain,Slow Progress due to Medical Issues,Slow Progress due to Activity Tolerance Assessment Summary Pt low complexity and main barriers are pain, decreased dynamic balance, needing cues to incorporate his back precautions, and now needing one person assist for his ADL and mobility needs. Pt will greatly benefit from skilled rehab prior to going home. Goals Grooming Goal Independent Dressing Goal Independent Toileting Goal Independent Bathing Goal Independent Toilet Transfer Goal Independent Shower Transfer Goal Independent Days to Meet Goals 10 Frequency of Treatment Frequency Of Treatment Once a Day Treatment Plan OT Treatment Plan ADL Training,Functional Cognition Training,Functional Mobility,Patient/Family Education,Discharge Planning Discharge Recommendations OT Discharge Recommendations SNF Rehab Transportation Needs at Discharge Wheelchair/Cabulance
[2021-10-18] MEDS: MAGNESIUM HYDROXIDE 30 ML UDC PO (14:38)
--- NOTE | 2021-10-18 15:00 | CM.DPNOTE ---
Sent referral to [facility]; NORMAN & Jeannette Lowery. Gladys Grimaldo, ROLANDO Assist.
--- NOTE | 2021-10-18 15:49 | PT-IP ANOTE ---
Addendum entered and electronically signed by Eryn Guy PT 10/18/21 15:55: This is to certify that I am involved with this pt's care and with direct supervision. Original Note: checked in with pt for PT. Pt refused therapy, son present. Educated pt regarding importance of PT and informed that PT will check back in tomorrow.
--- NOTE | 2021-10-18 16:06 | PC.NURSE ---
Addendum entered by Alondra Chaves R.N. 10/18/21 16:22: Spoke to Dr. Anthony via phone, notified that pt blood pressure has been low at 09:38 bp 109/45 and heart rate 72, at 15:53 blood pressure 126/35 and heart rate 60, pt denies dizziness or lightheadedness, held AM amlodipine and metoprolol (see MAR). Dr. Anthony states ok to have held amlodpine and metoprolol, no new orders given. Original Note: 10:[address] Anthony regarding pt low blood pressure. Blood pressure 109/45, pt denies dizziness, lightheadedness.
--- NOTE | 2021-10-18 19:27 | PC.NURSE ---
CM, per Son Willian, please call him at with an update about SNF placement and d/c plan.
[2021-10-18] MEDS: SENNOSIDES 8.6 MG TABLET 17.2 MG PO (20:51)
[2021-10-18] MEDS: ATORVASTATIN 20 MG TABLET 40 MG PO (20:51)
[2021-10-18] MEDS: hydrOXYzine pamoate 25 MG CAPSULE PO (21:36)
[2021-10-19] VITALS: BP 122/63; PULSE 71; RESP 14; TEMP 36.9; O2SAT 94
[2021-10-19] MEDS: OXYCODONE IR 5 MG TABLET PO ×6 (00:13→20:15)
[2021-10-19] MEDS: ACETAMINOPHEN 325 MG TABLET 650 MG PO ×4 (00:14→20:16)
[2021-10-19] MEDS: hydrOXYzine pamoate 25 MG CAPSULE PO ×2 (04:11→10:23)
[2021-10-19 04:45] VITALS: BP 144/51; PULSE 72; RESP 18; TEMP 36.6; O2SAT 95
[2021-10-19 08:00] VITALS: BP 131/54; PULSE 61; RESP 16; TEMP 36.8; O2SAT 94
[2021-10-19] MEDS: DOCUSATE 100 MG CAPSULE PO ×2 (08:31→20:17)
[2021-10-19] MEDS: MAGNESIUM HYDROXIDE 30 ML UDC PO (08:31)
[2021-10-19 08:32] VITALS: BP 131/54; PULSE 82
[2021-10-19] MEDS: METOPROLOL ER 25 MG TABLET 12.5 MG PO (08:32)
[2021-10-19] MEDS: MULTIVITAMIN 1 TABLET 1 TAB PO (08:32)
[2021-10-19] MEDS: AMLODIPINE 5 MG TABLET 2.5 MG PO (08:33)
[2021-10-19] MEDS: SODIUM CHLORIDE 0.9% FLUSH 10 ML IV (08:38)
--- NOTE | 2021-10-19 08:38 | P.PN_ITS ---
Subjective Subjective Date Patient Seen: 10/19/21 Time Patient Seen: 08:38 Interval history: Sitting up in bed, about to eat breakfast. C/o constipation, requests MOM. Urinating with some difficulty, but he says that is normal for him. Denies N/V. Pain 05/12. Did not participate w/ PT yesterday afternoon d/t mild pain; reassured him that some pain is normal and that he does need to work w/ PT. Exam Vital Signs (past 8 hours): - 10/19/21 04:45 10/19/21 08:32 10/19/21 08:00 Temperature 97.8 F 98.2 F Pulse Rate 72 82 61 Respiratory Rate 18 16 Blood Pressure 144/51 H 131/54 L 131/54 L Pulse Oximetry 95 94 Oxygen Flow Rate 0 0 Oxygen Delivery Method Room Air Oxygen Flow Rate 0 Narrative Exam Narrative: 5/5 strength in hip flexors, quadriceps, hamstrings, DF, PF, EHL bilaterally. Sensation to light touch intact in BLE. Calves soft, compressible, nontender and without palpable cords or masses. Low back dressing placed yesterday is CDI. [facility] Medical History Cervical spinal stenosis COPD (chronic obstructive pulmonary disease) Hearing impaired History of prostate cancer HLD (hyperlipidemia) HTN (hypertension) Myocardial infarction Osteoarthritis Pre-diabetes Prostate cancer Sciatica Surgical History (Updated 10/18/21 @ 06:59 by Chantal Crook PA-C) H/O vasectomy History of right cataract extraction Hx of cervical spine surgery Hx of cholecystectomy Hx of heart artery stent Hx of laminectomy Hx of laminectomy Hx of prostatectomy Hx of tonsillectomy S/P cervical spinal fusion Social History household members: none Smoking Status: Former smoker alcohol intake: former Assessment & Plan Assessment and plan (1) S/P lumbar fusion: Status: Acute Plan: Per CM note, likely d/c to SNF tomorrow. Covid booster ordered. Continue PT, multimodal pain management. Ordered scheduled daily MOM for pt; this should be continued on discharge. Time Spent With Patient Critical Care time: I spent a total of [] minutes of critical care time on this patient's care today; this time is exclusive of procedural time. Quality VTE Deep Vein Thrombosis/Pulmonary Embolism Present on Admission: No
--- NOTE | 2021-10-19 09:35 | OT.IP.TRT ---
Current Diagnoses Foot drop, left foot (10/17/21) Spinal stenosis, lumbar region without neurogenic claudication (10/17/21) Postlaminectomy syndrome, not elsewhere classified (10/17/21) Arthrodesis status (10/17/21) Surgery Performed Operation Date: 10/17/21 13:45 Actual Procedures p L4-5 TLIF - Riri Anthony MD Occupational Therapy Treatment Note M2 OT-IP Current Condition Start: 10/18/21 12:45 Freq: Status: Active Protocol: Document 10/18/21 12:45 [facility] (Rec: 10/18/21 13:07 [facility] [id number]) Occupational Therapy Current Condition Current Condition Evaluation Date 10/18/21 Treatment Diagnosis S/p L4-5 TLIF Diagnosis Onset Date 10/17/21 Post Operative Precautions Lumbar Precautions Log Roll,No Twisting,Limit Bending,Lifting Restriction of 10 lbs,Gait Belt above Incisional Area M3 OT- IP Subjective and Pain Start: 10/18/21 12:45 Freq: Status: Active Protocol: Document 10/19/21 10:59 [facility] (Rec: 10/19/21 11:13 [facility] [id number]) OT- Subjective Occupational Therapy Visit Type Type Treatment Note Visit Start Time 09:03 Visit Stop Time 09:35 Total Visit Minutes 32 Occupational Therapy Visit Comments Patient Comments Pt agreed to get up and try to use the bathroom and brush his teeth. Patient/Caregiver Goals To go to skilled rehab. OT Pain Assessment Pain When Pain Assessed During Mobility Pain Present Pain Present Pain Reported Location Back Intensity 3 Scale Used Numeric (0 - 10) M4 OT- IP ADL's Start: 10/18/21 12:45 Freq: Status: Active Protocol: Document 10/19/21 10:59 [facility] (Rec: 10/19/21 11:13 [facility] [id number]) OT ADL-Grooming General Evaluation Grooming Ability Standby Assistance Areas Needing Assistance Retrieving/Set-up of Grooming Items Comments OT Grooming Comments Pt states did earlier in bed. OT ADL-Oral Care General Eval Oral Care Ability Standby Assistance Areas of Assistance Retrieving/Set-Up of Items Comments Oral Care Comments Pt having to lean and hold onto the counter in order to brush his teeth. Pt not able to stand on his own due to legs partial buckling. OT ADL-Toileting General Evaluation Toileting Ability Standby Assistance,Maximum Assistance Comments OT Toileting Comments Pt able to sit on the toilet and unable to go at this time. Pt will still benefit from having assist for hygiene needs as currently not able to reach appropriately to wipe himself if having a bowel movement. OT ADL-Bathing Comments OT Bathing Comments Pt states too tired to try today. M5 OT- IP IADL's Start: 10/18/21 12:45 Freq: Status: Active Protocol: Document 10/18/21 12:45 [facility] (Rec: 10/18/21 13:07 [facility] [id number]) OT-Instrumental Activities of Daily Living Home Safety Awareness Awareness of Need for Assistance at Home Good Awareness Meal Preparation Meal Preparation Comments At this time pt would need assist. Strings Teacher Strings Teacher Comments At this time pt would need assist. M6 OT- IP Functional Cognition Start: 10/18/21 12:45 Freq: Status: Active Protocol: Document 10/19/21 10:59 [facility] (Rec: 10/19/21 11:13 [facility] [id number]) Cognitive Factors Limiting Selfcare Function Cognitive Comments Cognitive Assessment Comments Pt able to follow back precautions better today. Pt is cooperative and at times needing encouragement and concrete steps to follow. M7 OT- IP Mobility and Balance Start: 10/18/21 12:45 Freq: Status: Active Protocol: Document 10/19/21 10:59 [facility] (Rec: 10/19/21 11:13 [facility] [id number]) OT- Bed Mobility Assessment Supine to Sit Supine to Sit Assist Minimal Assistance,Moderate Assistance Sit to Supine Sit to Supine Assist Minimal Assistance OT-Transfer Assessment Sit to and From Stand Sit to and from Stand Minimal Assistance Transfers Transfer Ability Minimal Assistance Technique Transfer Destination Bed Devices Transfer Assistive Devices Gait Belt,Front Wheeled Walker Comments Mobility Comments RAQUEL/MODA for bed mobility today to help get his trunk upright and legs back into the bed. RAQUEL to stand and for balance and to guide the FWW. Pt heavy use of his BUE on the FWW to assist to walk at this time. OT- Balance Assessment Sitting Balance and Reactions Static Sitting Balance Ability Good Dynamic Sitting Balance Ability Fair Standing Balance and Reactions Static Standing Balance Ability Poor Dynamic Standing Balance Ability Poor Comments Other Balance Tests/Deviations/Treatment Pt very unsteady on his feet : and tends to walk with his knees bent and needing cues to straighten upright. M8 OT- IP Objective Assessments Start: 10/18/21 12:45 Freq: Status: Active Protocol: Document 10/18/21 12:45 [facility] (Rec: 10/18/21 13:07 [facility] [id number]) OT-Muscle Tone Assessment Muscle Tone WNL Yes M9 OT- IP Assessment and Plan Start: 10/18/21 12:45 Freq: Status: Active Protocol: Document 10/19/21 10:59 [facility] (Rec: 10/19/21 11:13 [facility] [id number]) OT Summary Assessment and Plan Potential Rehabilitation Potential Good Analytic Complexity at Evaluation Low Summary OT Impairments Pain,Balance,Functional Cognition,Functional Mobility, Dressing,Toileting,Bathing, Toilet Transfers,Shower Transfers,Activity Tolerance Progress Towards Goals Slow Progress due to Pain,Slow Progress due to Activity Tolerance Assessment Summary Pt still needing MIN/MODA for mobility needs today and heavily relies on his arms on the FWW to assist for mobility . Pt still unable to reach to wipe at this time for hygiene needs. Pt will greatly benefit from skilled rehab prior to going home. Goals Grooming Goal Independent Dressing Goal Independent Toileting Goal Independent Bathing Goal Independent Toilet Transfer Goal Independent Shower Transfer Goal Independent Days to Meet Goals 10 Frequency of Treatment Frequency Of Treatment Once a Day Treatment Plan OT Treatment Plan ADL Training,Functional Cognition Training,Functional Mobility,Patient/Family Education,Discharge Planning Other Treatment Recommendations and Next shower Treatment Focus Discharge Recommendations OT Discharge Recommendations SNF Rehab Transportation Needs at Discharge Wheelchair/Cabulance
--- NOTE | 2021-10-19 10:23 | PT.IPTN ---
Current Diagnoses Foot drop, left foot (10/17/21) Spinal stenosis, lumbar region without neurogenic claudication (10/17/21) Postlaminectomy syndrome, not elsewhere classified (10/17/21) Arthrodesis status (10/17/21) Surgery Performed Operation Date: 10/17/21 13:45 Actual Procedures p L4-5 TLIF - Riri Anthony MD Physical Therapy Treatment Note M2 PT-IP Current Condition Start: 10/18/21 12:25 Freq: NEEDED Status: Active Protocol: Document 10/18/21 09:55 AB (Rec: 10/18/21 12:44 AB [id number]) Physical Therapy Current Condition Current Condition Evaluation Date 10/18/21 Treatment Diagnosis s/p L4-5 TLIF; difficulty in walking Onset Date 10/17/21 M3 PT-IP Subjective Start: 10/18/21 12:25 Freq: NEEDED Status: Active Protocol: Document 10/19/21 10:08 KS (Rec: 10/19/21 11:38 KS [id number]) Subjective Physical Therapy Visit Type Type Treatment Note Visit Start Time 10:08 Visit Stop Time 10:23 Total Visit Minutes 15 Number of FACILITY SPECIALIST Visits 1 Physical Therapy Visit Comments Patient Comments agreeable to do PT M4 PT-IP Mobility and Gait Start: 10/18/21 12:25 Freq: NEEDED Status: Active Protocol: Document 10/19/21 10:08 KS (Rec: 10/19/21 11:38 KS [id number]) PT-Bed Mobility Assessment Rolling Type of Rolling Log Rolling Level of Assist Moderate Assistance Supine to Sit Supine to Sit Moderate Assistance,1 Person Assistance,Head of Bed Elevated Sit to Supine Sit to Supine Minimal Assistance Scooting Scooting to Edge of Bed Contact Guard Assistance PT-Transfer Assessment Sit to and From Stand Sit to and from Stand Moderate Assistance,1 Person Assistance,Use of Upper Extremities Equipment Transfer Assistive Device Gait Belt,Front Wheeled Walker Orthotic/Prosthetic Devices or Brace: No Transfers Transfer Destination Bed Transfer Technique ambulated Transfer Ability Level of Assist Moderate Assistance,1 Person Assistance,Use of Upper Extremities Comments Mobility Comments Pt in bed upon arrival and agreeable to try ambulating. Able to recall 3/3 spinal precautions. Mod A for logroll and sidelying<>Sit w/ HOB slightly elevated. Pt able to scoot EOB CGA but with difficulty and increased pain. Mod A and cues for hand placement for sit<>stand w/ FWW. Pt able to perform marching in place and then ambulated ~20 ft w/ FWW but took 2x standing rest breaks. Pt ambulated w/ flexed trunk and bilaterally flexed knees w / FWW too far in front of him and only able to minimally correct w/ cues. Pt reported fatigue and 7/10 pain and requested to go back to bed. Attempted to complete exercises while pt was seated on EOB but pt requested to lay down following ankle pumps. Min A for LE elevation into bed, pt able to complete glute sets. Left in bed w/ alarm on and all needs in reach. Gait Assessment Gait Gait Assistance Required: Minimum Assistance Distance (Feet) 20 Able to Maintain Weight Bearing Status Yes During Gait Assistive Devices Assistive Device Gait Belt,Front Wheeled Walker Orthotic/Prosthetic Devices or Brace: No Gait Deviations General Gait Pattern Antalgic,Decreased Stride Length,Decreased Feet Clearance Factors Limiting Gait Function Factors Limiting Gait Function Decreased Activity Tolerance, Decreased Strength,Difficulty Following Directions,Limited Range of Motion,Pain,Poor Balance,Poor Safety Awareness Comments Gait Comments Please refer to mobility section for details. Stair Climbing Assessment Comments Stair Climbing Comments Did not assess. PT-Balance Assessment Sitting Balance and Reactions Static Sitting Balance Ability Good Dynamic Sitting Balance Ability Good Standing Balance and Reactions Static Standing Balance Ability Fair Dynamic Standing Balance Ability Poor Device Used FWW M5 PT-IP Objective Assessments Start: 10/18/21 12:25 Freq: NEEDED Status: Active Protocol: Document 10/18/21 09:55 AB (Rec: 10/18/21 12:44 AB [id number]) Orientation Orientation/Cognition Level of Alertness Alert Orientation Name,Place,Situation Language Function Ability Hard of Hearing Safety Awareness Decreased Safety Awareness Memory Description Short Term Impaired,Jail Impaired Comments with memory issues Gross Range of Motion Lower Extremity ROM Assessment Within Functional Limits Strength Lower Extremity Strength Assessment Bilaterally Impaired Comments Strength Comments LLE: 4-/5 RLE: 3+/5 Coordination Assessment Gross Coordination Gross Coordination WNL Muscle Tone Muscle Tone WNL Yes M6 PT-IP Treatment Start: 10/18/21 12:25 Freq: NEEDED Status: Active Protocol: Document 10/19/21 10:08 KS (Rec: 10/19/21 11:38 KS [id number]) Physical Therapy Treatment Exercises Exercises Ankle Pumps,Gluteal Sets Education Education Provided Precautions,Weight Bearing Status,Post-Op Packet,Safety M7 PT-IP Assessment and Plan Start: 10/18/21 12:25 Freq: NEEDED Status: Active Protocol: Document 10/19/21 10:08 KS (Rec: 10/19/21 11:38 KS [id number]) PT Summary Assessment and Plan Potential Rehabilitation Potential Fair Summary Impairments Pain,ROM,Strength,Balance, Coordination,Sensation,Tone, Cognition,Bed Mobility, Transfers,Gait,Activity Tolerance Progress Towards Goals Slow Progress due to Pain,Slow Progress due to Activity Tolerance Assessment Summary Pt slow to progress at this time and requiring Mod A for bed mobility and Min A for ambulation w/ FWW. Pt could only tolerate 20 ft ambulation and needed 2x standing rest breaks d/t pain and fatigue. Tolerated minimal LE exercises in bed to promote blood flow and strengthening. He continues to be slightly impulsive and recalls precautions but needs cues to adhere to them. He will require SNF to improve strength and functional mobility. Will continue to assess progress. Goals Bed Mobility Goal Standby Assistance Transfer Goal Standby Assistance,Front Wheeled Walker Gait Goal Standby Assistance,Front Wheel Walker Gait Distance 150 Days to Meet Goals 10 Frequency of Treatment Frequency Of Treatment Twice a Day Treatment Plan Physical Therapy Treatment Plan Bed Mobility Training,Transfer Training,Gait Training, Therapeutic Exercise,Balance Retraining,Post Op Education, Discharge Planning,Hot or Cold Pack,Neuromuscular Re-ed, Coordination Retraining,Manual Therapy Precautions Lumbar Precautions Log Roll,No Twisting,Limit Bending,Lifting Restriction of 10 lbs,Gait Belt above Incisional Area Recommendations To Nursing Amount of Assist Needed 1 Person Assist Discharge Recommendations PT Discharge Recommendations SNF Rehab Transportation Needs at Discharge Wheelchair/Cabulance
--- NOTE | 2021-10-19 12:48 | PT.IPTN ---
Current Diagnoses Foot drop, left foot (10/17/21) Spinal stenosis, lumbar region without neurogenic claudication (10/17/21) Postlaminectomy syndrome, not elsewhere classified (10/17/21) Arthrodesis status (10/17/21) Surgery Performed Operation Date: 10/17/21 13:45 Actual Procedures p L4-5 TLIF - Riri Anthony MD Physical Therapy Treatment Note M2 PT-IP Current Condition Start: 10/18/21 12:25 Freq: NEEDED Status: Active Protocol: Document 10/18/21 09:55 AB (Rec: 10/18/21 12:44 AB [id number]) Physical Therapy Current Condition Current Condition Evaluation Date 10/18/21 Treatment Diagnosis s/p L4-5 TLIF; difficulty in walking Onset Date 10/17/21 M3 PT-IP Subjective Start: 10/18/21 12:25 Freq: NEEDED Status: Active Protocol: Document 10/19/21 12:25 KS (Rec: 10/19/21 13:20 KS [id number]) Subjective Physical Therapy Visit Type Type Treatment Note Visit Start Time 12:25 Visit Stop Time 12:48 Total Visit Minutes 23 Number of VP CLINICAL RESEARCH Visits 2 Physical Therapy Visit Comments Patient Comments agreeable to do PT M4 PT-IP Mobility and Gait Start: 10/18/21 12:25 Freq: NEEDED Status: Active Protocol: Document 10/19/21 12:25 KS (Rec: 10/19/21 13:20 KS [id number]) PT-Bed Mobility Assessment Rolling Type of Rolling Log Rolling Level of Assist Minimal Assistance Sit to Supine Sit to Supine Minimal Assistance Scooting Scooting to Edge of Bed Contact Guard Assistance PT-Transfer Assessment Sit to and From Stand Sit to and from Stand Minimal Assistance,1 Person Assistance,Use of Upper Extremities Equipment Transfer Assistive Device Gait Belt,Front Wheeled Walker Orthotic/Prosthetic Devices or Brace: No Transfers Transfer Destination Bed Transfer Technique ambulated Transfer Ability Level of Assist Minimal Assistance,Moderate Assistance,1 Person Assistance ,Use of Upper Extremities Comments Mobility Comments Pt sitting EOB upon arrival, c /o indigestion. Agreeable to PT. Pt impulsive, needing safety cues before sit<>stand. Arnel for sit<>Stand w/ FWW. Pt ambulated ~30 ft w/ FWW Min A and cues for FWW mgmt and upright posture. Pt returned to sit EOB and completed 1x10 bilateral ankle pumps and seated marches. Min A for LE assistance for sit<>sup. Pt then completed 1x10 bilateral quad sets and glute sets. Able to recall 2/3 precautions this PM (no twisting). Pt left in bed w/ alarm on and all needs in reach. Gait Assessment Gait Gait Assistance Required: Minimum Assistance Distance (Feet) 30 Able to Maintain Weight Bearing Status Yes During Gait Assistive Devices Assistive Device Gait Belt,Front Wheeled Walker Orthotic/Prosthetic Devices or Brace: No Gait Deviations General Gait Pattern Antalgic,Decreased Stride Length,Decreased Feet Clearance,Flexed Trunk Factors Limiting Gait Function Factors Limiting Gait Function Decreased Activity Tolerance, Decreased Strength,Difficulty Following Directions,Limited Range of Motion,Pain,Poor Balance,Poor Safety Awareness Comments Gait Comments Slow to progress gait d/t pain and weakness. Flexed trunk, heavy WB through BUE, difficulty turning. Minimal improvement w/ cues for upright posture and keeping close to FWW. PT-Balance Assessment Sitting Balance and Reactions Static Sitting Balance Ability Good Dynamic Sitting Balance Ability Good Standing Balance and Reactions Static Standing Balance Ability Fair Dynamic Standing Balance Ability Fair Device Used FWW M5 PT-IP Objective Assessments Start: 10/18/21 12:25 Freq: NEEDED Status: Active Protocol: Document 10/18/21 09:55 AB (Rec: 10/18/21 12:44 AB [id number]) Orientation Orientation/Cognition Level of Alertness Alert Orientation Name,Place,Situation Language Function Ability Hard of Hearing Safety Awareness Decreased Safety Awareness Memory Description Short Term Impaired,Half-Way Impaired Comments with memory issues Gross Range of Motion Lower Extremity ROM Assessment Within Functional Limits Strength Lower Extremity Strength Assessment Bilaterally Impaired Comments Strength Comments LLE: 4-/5 RLE: 3+/5 Coordination Assessment Gross Coordination Gross Coordination WNL Muscle Tone Muscle Tone WNL Yes M6 PT-IP Treatment Start: 10/18/21 12:25 Freq: NEEDED Status: Active Protocol: Document 10/19/21 12:25 KS (Rec: 10/19/21 13:20 KS [id number]) Physical Therapy Treatment Exercises Exercises Ankle Pumps,Gluteal Sets,Quad Sets Education Education Provided Precautions,Weight Bearing Status,Post-Op Packet,Safety Other Treatments Other Treatment Performed seated marching M7 PT-IP Assessment and Plan Start: 10/18/21 12:25 Freq: NEEDED Status: Active Protocol: Document 10/19/21 12:25 KS (Rec: 10/19/21 13:20 KS [id number]) PT Summary Assessment and Plan Potential Rehabilitation Potential Fair Summary Impairments Pain,ROM,Strength,Balance, Coordination,Sensation,Tone, Cognition,Bed Mobility, Transfers,Gait,Activity Tolerance Progress Towards Goals Slow Progress due to Pain,Slow Progress due to Activity Tolerance Assessment Summary Pt continues to show slow progress due to weakness, pain , and low tolerance for activity. Min A for bed mobility, sit<>stand, and 30 ft ambulation this PM. Remains impulsive and needs cues for uprght posture, precaution adherence, and FWW mgmt. Increased tolerance for therapeutic exercises this PM. Pt will require SNF to improve strength, activity tolerance, and functional mobility independence. Goals Bed Mobility Goal Standby Assistance Transfer Goal Standby Assistance,Front Wheeled Walker Gait Goal Standby Assistance,Front Wheel Walker Gait Distance 150 Days to Meet Goals 10 Frequency of Treatment Frequency Of Treatment Twice a Day Treatment Plan Physical Therapy Treatment Plan Bed Mobility Training,Transfer Training,Gait Training, Therapeutic Exercise,Balance Retraining,Post Op Education, Discharge Planning,Hot or Cold Pack,Neuromuscular Re-ed, Coordination Retraining,Manual Therapy Precautions Lumbar Precautions Log Roll,No Twisting,Limit Bending,Lifting Restriction of 10 lbs,Gait Belt above Incisional Area Recommendations To Nursing Amount of Assist Needed 1 Person Assist Discharge Recommendations PT Discharge Recommendations SNF Rehab Transportation Needs at Discharge Wheelchair/Cabulance
[2021-10-19 14:00] VITALS: BP 133/42; PULSE 61; RESP 17; TEMP 36.9; O2SAT 92
--- NOTE | 2021-10-19 14:00 | CM.DPC ---
DCP SNF Planning SW called [facility] this morning and they confirm they have referral and will review [place] first thing this AM. No return call from [facility] and left another msg. SW called [facility] and they are awaiting determination from [facility] to confirm if copay can be waived since currently no other contracted SNF can accept. SW met bedside with pt and updated on acceptance at [facility] and awaiting to determine if copay would be needed and potential for updated COVID booster shot prior to d/c to SNF and pt agreeable with [facility] and booster if needed. Plan: SW to follow closely for likely plan of d/c to SNF tomorrow 10/20/21 to [facility] with or without a copay and with likely need for COVID booster order from physician. PADMA Turner
[2021-10-19] MEDS: COVID-19 VACC #3, MRNA(MOD) 50 MCG/0.25 ML VIAL IM (18:46)
[2021-10-19 20:00] VITALS: BP 120/41; PULSE 69; RESP 17; TEMP 37.1; O2SAT 93
[2021-10-19] MEDS: SENNOSIDES 8.6 MG TABLET 17.2 MG PO (20:17)
[2021-10-19] MEDS: ATORVASTATIN 20 MG TABLET 40 MG PO (20:17)
[2021-10-20] MEDS: OXYCODONE IR 5 MG TABLET PO ×2 (00:55→05:07)
[2021-10-20] MEDS: hydrOXYzine pamoate 25 MG CAPSULE PO (00:55)
[2021-10-20 04:00] VITALS: BP 122/49; PULSE 66; RESP 16; TEMP 36.3; O2SAT 96
[2021-10-20] MEDS: ACETAMINOPHEN 325 MG TABLET 650 MG PO (05:07)
--- NOTE | 2021-10-20 06:54 | PC.NURSE ---
Pt A & O x 4, demanding at times, needs frequent reminders of proper use of walker, needs encouragement to participate in ADLs.
--- NOTE | 2021-10-20 07:24 | P.DS_ITS ---
History of Present Illness History of Present Illness Date Patient Seen: 10/20/21 Time Patient Seen: 07:25 Chief complaint: Low back pain s/p TLIF Narrative: Patient is complaining of moderate to severe low back pain. Notes the numbness in his right leg is resolving as compared to preop. Is planning on being discharged to SNF today, he is not safe from a physical therapy standpoint to go home. Discharge Providers Provider Discharge Date: 10/20/21 Primary care physician: Randa Trivedi PA-C Consults: 10/17/21 18:36 Consult to Occupational Therapy Evaluate & Treat Comment: Physician Instructions: Evaluate and treat Consult to Physical Therapy Evaluate & Treat Comment: Physician Instructions: Evaluate and Treat Discharge provider: Alesia Jackson PA-C Summary Hospital Course Discharge Diagnosis: 1. 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 Lumbar spondylosis with radiculopathy Hospital Course: Operative Date/Time/Diagnoses Date of procedure: 10/17/21 Time of procedure: 13:50 Procedure & Clinicians Procedure: 1. L4-5 Postero-lateral and posterior interbody fusion 2. L4-5 interbody cage placement. 3. L4-5 decompressive laminectomy with bilateral facetecomies 4. L4-5 Posterior non-segmental instrumentation 5. Armstrong of bone marrow from iliac crest 6. Utilization of microsurgical technique and operating microscope Same procedure as scheduled: Yes Indications: Patient has been having chronic back pain and worsening lumbar radiculopathy. Patient failed multiple conservative management with worsening pain weakness and numbness in her lower extremity.? Patient has been having difficulty performing activity of daily living.? After discussing risks benefits of treatment options, patient elected proceed with surgery. Surgeon: Riri Anthony Sql Consultant: Chantal Crook Click Yes if Unassisted: No Anesthesia Type: General Operative Notes Closure Type: primary Specimen(s): none sent Prosthetic devices, grafts, tissues, transplants, or devices: Globus revolve screws, Rise cage Estimated Blood Loss (mL): 50 Blood products transfused: none Status at Discharge Cognitive/behavioral status at discharge: at baseline, oriented Functional status at discharge: uses cane/walker Overall status at discharge: patient is progressing back to baseline Exam Vital Signs (past 8 hours): - 10/20/21 04:00 Temperature 97.3 F L Pulse Rate 66 Respiratory Rate 16 Blood Pressure 122/49 L Pulse Oximetry 96 Oxygen Delivery Method Room Air Oxygen Flow Rate 0 Narrative Exam Narrative: Pleasant 86yo male, resting comfortably in bed, no acute distress. Dressing is C/D/I. There is surrounding ecchymosis, but no induration or fluid accumulation appreciated. Bilateral lower extremities: motor functions are grossly intact, sensation is grossly intact to light touch, calves are soft and nonTTP. [facility] Medical History Cervical spinal stenosis COPD (chronic obstructive pulmonary disease) Hearing impaired History of prostate cancer HLD (hyperlipidemia) HTN (hypertension) Myocardial infarction Osteoarthritis Pre-diabetes Prostate cancer Sciatica Surgical History H/O vasectomy History of right cataract extraction Hx of cervical spine surgery Hx of cholecystectomy Hx of heart artery stent Hx of laminectomy Hx of laminectomy Hx of prostatectomy Hx of tonsillectomy S/P cervical spinal fusion Social History household members: none Smoking Status: Former smoker alcohol intake: former Discharge Assessment & Plan Assessment and Plan Assessment: --stable status post L4-5 TLIF Plan of Treatment: -mobilize with PT/OT. No bending, lifting, twisting x6 weeks -continue multimodal pain mangement -dc to SNF today, once bed is available and cleared by PT Discharge Plan Discharge Plan Patient Disposition: SNF I certify the postop hospital senior living care is medically necessary on a continuing basis for any conditions for which he/ she received care during this hospitalization.: Yes The receiving facility has agreed to accept transfer and provide medical treatment.: Yes Discharge orders & Medications Discharge Orders: Discharge (Order); Ordered 10/20/21 Ordered By: Alesia Jackson Prescriptions: New acetaminophen 500 mg capsule 500 mg PO Q4H MDD max 3,000mg per day PRN (Reason: Pain, Mild (1-3)) Qty: 90 0RF docusate sodium 100 mg Capsule 100 mg PO BID PRN (Reason: constipation) Qty: 30 0RF hydroxyzine pamoate 25 mg Capsule 25 mg PO Q4HR PRN (Reason: muscle spasms/pain/nausea) Qty: 30 0RF oxycodone 5 mg Tablet 5 mg PO Q3HR PRN (Reason: Pain, Moderate (4-6)) Qty: 42 0RF Continued multivitamin Tablet 1 tab PO DAILY atorvastatin 40 mg Tablet 40 mg PO BEDTIME amlodipine 2.5 mg Tablet 2.5 mg PO DAILY aspirin 81 mg Tablet,Delayed Release (Dr/Ec) 81 mg PO DAILY metoprolol succinate 25 mg Tablet Extended Release 24 Hr 12.5 mg PO DAILY Follow up/Referrals: Riri Anthony MD [Physician] - As previously scheduled (Follow up with Chantal Crook PA-C, on 10/27/2021 @ 3:30 pm at [facility] in [place].) Randa Trivedi PA-C [Primary Care Provider] - Diet/Activity/Treatments Diet: Diet as Tolerated Other treatments: Dressing/Wound care: -Keep dressing in place until postoperative follow-up office visit. -Okay to shower. Keep wound out of direct water stream. Can use PressNSeal plastic wrap to protect from shower stream. No soaking or submerging until all the scabs fall off (approximately 6 weeks). -Please call the office if dressing becomes wet, soiled, or saturated. Activities: -Limit bending, lifting, twisting x6 weeks. No deep bending (more than 90 degrees) or twisting at the waist. No lifting > 20 pounds. -Walk frequently. -Weight-bearing as tolerated. Use front wheeled walker, and progress to cane when safe. -Continue with home exercises as directed by your physical therapist. -Ice your incision as needed for pain/inflammation/swelling. Protect your skin with a folded pillowcase. -Incentive Spirometer (breathing device from hospital): 5-10xs every hour while awake for the first 1-2 weeks. Follow-up: -Follow-up with your surgeon or PA in the office in 10-14 days after surgery. -Follow-up with your surgeon 6 weeks postoperatively. Call the office if you have chest pain, shortness of breath, significant swelling that will not resolve with elevating, fever over 101?, significantly w orsening pain, or are concerned you might need to go to the Emergency Room. [facility]: [phone] Skin/Wound/Dressing Care Report to your healthcare provider any signs of infection, such as:: chills, fever, night sweats, unusual drainage and unusual redness [facility] Rehabilitation [facility] Reason for rehabilitation: Post-operative therapy Rehab type: Physical therapy and Occupational therapy Visit Report/Discharge Packet Instructions: DI for Transforaminal Lumbar Interbody Fusion Stand Alone Forms: Surgery Discharge Discharge Data Primary Care Provider: Randa Trivedi Attending Provider: Riri Anthony VTE Deep Vein Thrombosis/Pulmonary Embolism Present on Admission: No
[2021-10-20 08:00] VITALS: BP 122/70; PULSE 75; RESP 18; O2SAT 96
[2021-10-20 08:43] VITALS: BP 122/70; PULSE 74
[2021-10-20] MEDS: AMLODIPINE 5 MG TABLET 2.5 MG PO (08:43)
[2021-10-20] MEDS: METOPROLOL ER 25 MG TABLET 12.5 MG PO (08:43)
[2021-10-20] MEDS: MULTIVITAMIN 1 TABLET 1 TAB PO (08:43)
[2021-10-20] MEDS: DOCUSATE 100 MG CAPSULE PO (08:43)
[2021-10-20] MEDS: MAGNESIUM HYDROXIDE 30 ML UDC PO (08:44)
[2021-10-20 09:44] VITALS: BP 118/57; PULSE 69
--- NOTE | 2021-10-20 10:58 | PT.IPTN ---
Current Diagnoses Foot drop, left foot (10/18/21) Spinal stenosis, lumbar region without neurogenic claudication (10/18/21) Postlaminectomy syndrome, not elsewhere classified (10/18/21) Arthrodesis status (10/18/21) Surgery Performed Operation Date: 10/17/21 13:45 Actual Procedures p L4-5 TLIF - Riri Anthony MD Physical Therapy Treatment Note M2 PT-IP Current Condition Start: 10/18/21 12:25 Freq: NEEDED Status: Discharge Protocol: Document 10/18/21 09:55 AB (Rec: 10/18/21 12:44 AB [id number]) Physical Therapy Current Condition Current Condition Evaluation Date 10/18/21 Treatment Diagnosis s/p L4-5 TLIF; difficulty in walking Onset Date 10/17/21 M3 PT-IP Subjective Start: 10/18/21 12:25 Freq: NEEDED Status: Discharge Protocol: Document 10/20/21 10:58 JUNOM (Rec: 10/20/21 15:56 JUNO [id number]) Subjective Physical Therapy Visit Type Type Treatment Note Visit Start Time 10:35 Visit Stop Time 10:58 Total Visit Minutes 23 Number of BEEF SELECTOR Visits 3 Physical Therapy Visit Comments Patient Comments agreeable to do PT Patient Goals wants to use toilet M4 PT-IP Mobility and Gait Start: 10/18/21 12:25 Freq: NEEDED Status: Discharge Protocol: Document 10/20/21 10:58 NBM (Rec: 10/20/21 15:56 NB [id number]) PT-Bed Mobility Assessment Rolling Type of Rolling Log Rolling Level of Assist Minimal Assistance Supine to Sit Supine to Sit Moderate Assistance,1 Person Assistance Sit to Supine Sit to Supine Minimal Assistance Scooting Scooting to Edge of Bed Moderate Assistance Scooting Up and Down in Bed Moderate Assistance PT-Transfer Assessment Sit to and From Stand Sit to and from Stand Minimal Assistance,1 Person Assistance,Use of Upper Extremities Equipment Transfer Assistive Device Gait Belt,Front Wheeled Walker Orthotic/Prosthetic Devices or Brace: No Transfers Transfer Destination Bed,Toilet Transfer Technique ambulated Transfer Ability Level of Assist Minimal Assistance,Moderate Assistance,1 Person Assistance ,Use of Upper Extremities Comments Mobility Comments Pt L sidelying in bed upon arrival. Agreeable to PT to use toilet and return to bed. Pt able to recall 2/3 precautions and the third w/ reminder of BLT acronym (no twisting). Mod A for scotting to EOB, cued to perform bridging and scooting and mod A w/ draw sheet to position pt to roll for log roll. ModA for log roll to sitting EOB. Pt impulsive and reached for FWW to scoot further EOB, needing safety cues before sit <>stand. Armando for sit<>Stand w / FWW. Pt ambulated ~17 ft w/ FWW Min A and mod cues for FWW mgmt and upright posture. Pt requires cues for FWW mgmnt to decrease WB in UE and step w/ LEs backwards to toilet. Pt sat on toilet w/ min A and cues for hand placement. Pt performed sit<>stand Armando and standing balance CGA x 2 min while hygiene was peformed. Pt ambulated w/FWW Armando ~8 ft to sink w/ mod cues for pacing and upright posture, performed hand hygiene and brushed teeth weightbearing heavily in UE, then ambulated w/ FWW Armando ~ 8 ft to bedside. Pt sat EOB mod A w/ cues for contact behind legs. Sit EOB<>supine w/ log roll, Armando for LE elevation. Nursing notified of BM. Pt left in bed w/ alarm on, call light, and all needs within reach. Gait Assessment Gait Gait Assistance Required: Minimum Assistance Distance (Feet) 33 Able to Maintain Weight Bearing Status Yes During Gait Assistive Devices Assistive Device Gait Belt,Front Wheeled Walker Orthotic/Prosthetic Devices or Brace: No Gait Deviations General Gait Pattern Antalgic,Decreased Stride Length,Decreased Feet Clearance,Flexed Trunk Factors Limiting Gait Function Factors Limiting Gait Function Decreased Activity Tolerance, Decreased Strength,Difficulty Following Directions,Limited Range of Motion,Pain,Poor Balance,Poor Safety Awareness Comments Gait Comments Gait limited by pain and weakness - flexed trunk, heavy WB through BUE, difficulty turning. Minimal improvement w / cues for upright posture and keeping close to FWW. PT-Balance Assessment Sitting Balance and Reactions Static Sitting Balance Ability Good Dynamic Sitting Balance Ability Good Standing Balance and Reactions Static Standing Balance Ability Fair Dynamic Standing Balance Ability Fair Device Used FWW M5 PT-IP Objective Assessments Start: 10/18/21 12:25 Freq: NEEDED Status: Discharge Protocol: Document 10/18/21 09:55 AB (Rec: 10/18/21 12:44 AB [id number]) Orientation Orientation/Cognition Level of Alertness Alert Orientation Name,Place,Situation Language Function Ability Hard of Hearing Safety Awareness Decreased Safety Awareness Memory Description Short Term Impaired,Alf Impaired Comments with memory issues Gross Range of Motion Lower Extremity ROM Assessment Within Functional Limits Strength Lower Extremity Strength Assessment Bilaterally Impaired Comments Strength Comments LLE: 4-/5 RLE: 3+/5 Coordination Assessment Gross Coordination Gross Coordination WNL Muscle Tone Muscle Tone WNL Yes M6 PT-IP Treatment Start: 10/18/21 12:25 Freq: NEEDED Status: Discharge Protocol: Document 10/20/21 10:58 NBM (Rec: 10/20/21 15:56 [facility] [id number]) Physical Therapy Treatment Education Education Provided Precautions,Weight Bearing Status,Post-Op Packet,Safety M7 PT-IP Assessment and Plan Start: 10/18/21 12:25 Freq: NEEDED Status: Discharge Protocol: Document 10/20/21 10:58 NBM (Rec: 10/20/21 15:56 [facility] [id number]) PT Summary Assessment and Plan Potential Rehabilitation Potential Fair Summary Impairments Pain,ROM,Strength,Balance, Coordination,Sensation,Tone, Cognition,Bed Mobility, Transfers,Gait,Activity Tolerance Progress Towards Goals Slow Progress due to Pain,Slow Progress due to Activity Tolerance Assessment Summary Pt's progress is limited by pain and low activity tolerance. Pt ambulates with a flexed trunk, bent knees and weightbears heavily through upper extremities, all of which improve little w/ cueing . Pt demonstrates impulsivity and needs cues for uprght posture, precaution adherence, and FWW mgmt. Pt will require SNF to improve strength, activity tolerance, and functional mobility independence. Goals Bed Mobility Goal Standby Assistance Transfer Goal Standby Assistance,Front Wheeled Walker Gait Goal Standby Assistance,Front Wheel Walker Gait Distance 150 Days to Meet Goals 10 Frequency of Treatment Frequency Of Treatment Twice a Day Treatment Plan Physical Therapy Treatment Plan Bed Mobility Training,Transfer Training,Gait Training, Therapeutic Exercise,Balance Retraining,Post Op Education, Discharge Planning,Hot or Cold Pack,Neuromuscular Re-ed, Coordination Retraining,Manual Therapy Precautions Lumbar Precautions Log Roll,No Twisting,Limit Bending,Lifting Restriction of 10 lbs,Gait Belt above Incisional Area Recommendations To Nursing Amount of Assist Needed 1 Person Assist Discharge Recommendations PT Discharge Recommendations SNF Rehab Transportation Needs at Discharge Wheelchair/Cabulance
[2021-10-20 11:13] LABS: COVID19 -Nasal RAPID Negative (Negative)
--- NOTE | 2021-10-20 12:57 | CM.DPNOTE ---
DC Note DC to [facility] this morning, p/u at approx 1150, DC ppk faxed by KASANDRA Graham Spoke with Claudia at [facility] this morning; if patient is agreeable to (potentially) paying the co-pay of $225 daily with the current authorization from [employer], patient can admit to [facility] today Meanwhile, August working towards replacing the current auth with one that would not require the $225 co-pay from patient Explained above to patient and his son Willian and both state appreciation. Son hopeful patient will not accrue the daily co-pay, however, explains patient can afford to pay as needed, agreeable to plan- Plan: DC to [facility] via w/c today JW
== END 2021-10-20 12:10 ==
LOC: OR 10-20 14:22 → AC 10-20 14:22
PROVIDERS: Admitting Provider Orthopaedic Surgery Orthopaedic Surgery of the Spine; PCP Physician Assistant Medical; Referring Provider Orthopaedic Surgery Orthopaedic Surgery of the Spine; Visit Provider Orthopaedic Surgery Orthopaedic Surgery of the Spine
PROC: (CPT 20939; principal; 2021-10-17 13:45)
DX: M96.1 Postlaminectomy syndrome, not elsewhere classified (principal); M48.061 Spinal stenosis, lumbar region without neurogenic claudication; M21.372 Foot drop, left foot; Z98.1 Arthrodesis status; M54.16 Radiculopathy, lumbar region; Z23 Encounter for immunization; Z20.822 Contact with and (suspected) exposure to COVID-19; J44.9 Chronic obstructive pulmonary disease, unspecified; I25.2 Old myocardial infarction
CPT/HCPCS: 20939; 22840; 22853; 22633; 0013A; 00670; 72100; 76000; 82962; 87635; 91301; 97110; 97116; 97162; 97165; 97530; 97535; C9803; G0378; C1713; C1831; C9290; J0131; J0171; J0690; J1170; J2175; J2704; J3010

== ENCOUNTER → 2023-05-16 08:37 | Outpatient (CLI) | payer OTHER, SELFPAY ==
[2021-10-17 20:14] VITALS: BMI 34.2
--- NOTE | 2023-05-16 09:09 | DI.MRI.S_ITS ---
PROCEDURE: MR LUMBAR SPINE WO CON INDICATIONS: Spinal stenosis, lumbar region TECHNIQUE: Noncontrast sagittal T1 spin echo and T2 fast echo, sagittal STIR, and T2 fast spin echo through the lumbar spine. In cases with scoliosis, additional coronal T2 fast spin echo may be performed. COMPARISON: [facility], CR, XR LUMBAR SPINE 2-3V, 10/17/2021, 14:17. [facility] [place], CR, XR LUMBAR SPINE 2 OR 3 VIEWS, 11/22/2021, 13:44. [facility] [place], CR, XR LUMBAR SPINE 2 OR 3 VIEWS, 05/08/2023, 10:32. [facility], MR, MR LUMBAR SPINE WO CON, 08/19/2021, 17:44. FINDINGS: Image quality: Diagnostic Alignment and Curvature: There is normal bony alignment. Bone Marrow: Marrow is of normal overall signal. No acute vertebral body compression fractures. Redemonstration of postsurgical changes of L4-5 spinal fusion with interbody spacer. Alignment is stable. Spinal Cord: Conus medullaris terminates at the L1-2 interspace level. Visualized cord demonstrates normal signal and size. Paraspinous Soft Tissues: No paravertebral masses. Postsurgical soft tissue changes involving the level of spinal fusion no abnormal fluid collections identified. T12-L1: Minimal bilateral facet arthropathy. Minimal symmetric disc bulge. No significant neuroforaminal or spinal canal stenosis. L1-L2: Mild bilateral facet arthropathy. No significant neuroforaminal or spinal canal stenosis. L2-L3: Mild bilateral facet arthropathy. Minimal symmetric disc bulge. No significant spinal canal stenosis. Mild bilateral neuroforaminal stenosis more pronounced on the left L3-L4: Degenerative endplate changes. Moderate bilateral facet arthropathy. Prominent symmetric disc bulge. Moderate bilateral facet arthropathy. Moderate spinal canal stenosis. Effacement of the subarticular zones bilaterally as well as the foraminal zone bilaterally. Exiting nerve roots at this level are difficult to visualize secondary to susceptibility artifact of adjacent fusion hardware. Mild spinal canal stenosis. Moderate right and mild-moderate left bilateral neuroforaminal stenosis. L4-L5: Degenerative endplate changes and disc space loss with postsurgical changes of interbody spacer. No marrow edema at this level. Moderate bilateral facet arthropathy. Prominent endplate osteophytes. There is effacement of the subarticular zone bilaterally. Exiting nerve roots not well visualized secondary to susceptibility artifact of adjacent fusion hardware. Postsurgical changes of left hemilaminectomy of L4. Minimal spinal canal stenosis. Moderate bilateral neuroforaminal stenosis. L5-S1: Minimal loss of disc signal intensity. Degenerative endplate changes. Prominent symmetric disc bulge and moderate bilateral facet arthropathy. Severe bilateral neural foraminal stenosis and no significant spinal canal stenosis. Postoperative changes of right L5 hemilaminectomy. IMPRESSION: 1. Stable postsurgical changes and alignment of posterior spinal fusion of L4 and L5 with interbody spacer. Findings compatible with left L4 hemilaminectomy and right L5 hemilaminectomy. 2. Multilevel, multifactorial lumbar spondylosis as detailed above by vertebral body level which has progressed since pre surgical MRI. Dictated by: Phillip Clemons M.D. on 05/16/2023 at 10:54 Approved by: Phillip Clemons M.D. on 05/16/2023 at 12:40
== END ==
LOC: MRI 08:38
PROVIDERS: PCP Physician Assistant Medical; Referring Provider Orthopaedic Surgery Orthopaedic Surgery of the Spine; Visit Provider Orthopaedic Surgery Orthopaedic Surgery of the Spine
DX: M48.062 Spinal stenosis, lumbar region with neurogenic claudication (principal); M48.07 Spinal stenosis, lumbosacral region; M47.816 Spondylosis without myelopathy or radiculopathy, lumbar region; M47.817 Spondylosis without myelopathy or radiculopathy, lumbosacral region; M51.36 Other intervertebral disc degeneration, lumbar region; M51.37 Other intervertebral disc degeneration, lumbosacral region; Z98.1 Arthrodesis status
CPT/HCPCS: 72148